=== PATIENT | male | born 2005 | race Asian ===

== ENCOUNTER 2023-07-09 13:32 | Emergency (ER) | payer MEDICAID ==
[~2023-07-09] VITALS: Ht 165.1 cm; Wt 61.2 kg
[2023-07-09 14:10] VITALS: BP_SYST 127; PULSE 74; RESP 18; TEMP 97.8; O2SAT 98
== END 2023-07-09 16:03 | disposition home or self-care (01) ==
LOC: SED 13:32
DX: S62.605A Fracture of unspecified phalanx of left ring finger, initial encounter for closed fracture (principal); W20.8XXA Other cause of strike by thrown, projected or falling object, initial encounter; Y93.89 Activity, other specified; Y92.89 Other specified places as the place of occurrence of the external cause; Y99.8 Other external cause status
CPT/HCPCS: 73140; 99283